=== PATIENT | female | born 1995 | race Caucasian/White ===

== ENCOUNTER 2017-01-12 16:43 | Emergency (ER) | payer OTHER ==
[2017-01-12 17:39] LABS: BILIRUBIN NEGATIVE (NEGATIVE); BLOOD 3+ Ery/uL (NEGATIVE); CLARITY HAZY (CLEAR); COLOR RED (YELLOW); GLUCOSE (U) NORMAL (NORMAL); KETONE (U) TRACE mg/dL (NEGATIVE); LEUKOCYTES 1+ Leu/uL (NEGATIVE); NITRITE POSITIVE (NEGATIVE); PROTEIN 3+ mg/dL (NEGATIVE)
[2017-01-12 17:44] LABS: BACTERIA 1+; MUCOUS MODERATE; SQUAMOUS EPITHELIAL CELLS RARE; URINARY RBC 20-50
[2017-01-12 17:45] LABS: URINARY WBC RARE
[2017-01-12 17:49] LABS: BASOPHIL 0.3 % (0-2); EOSINOPHIL 2.7 % (0-5); HCT 43.3 % (37.0-47.0); HGB 14.8 g/dl (12.5-16.0); LYMPHOCYTE 22.6 % (15-48); MCH 29.5 pg (25.0-31.0); MCHC 34.2 g/dL (32.0-36.0); MCV 86.3 fL (78.0-100.0); MONOCYTE 7.7 % (0-12); NEUTROPHIL 66.7 % (41-80); PLT 215 K/uL (150-400); RBC 5.02 M/uL (4.20-5.40); RDW 13.3 % (11.5-14.0); WBC 6.7 K/uL (4.0-10.5)
[2017-01-12 18:07] LABS: CREATININE 0.8 mg/dL (0.5-1.0); POTASSIUM 4.2 mmol/L (3.5-5.1)
== END 2017-01-12 19:05 | disposition home or self-care (01) ==
LOC: FER 16:43
PROVIDERS: Nurse Practitioner
DX: N39.0 Urinary tract infection, site not specified (principal); R19.7 Diarrhea, unspecified; K21.9 Gastro-esophageal reflux disease without esophagitis; J45.909 Unspecified asthma, uncomplicated; Z88.1 Allergy status to other antibiotic agents
CPT/HCPCS: 36415; 80048; 81001; 85025